=== PATIENT | female | born 1955 | race Caucasian/White ===

== ENCOUNTER 2018-11-03 17:07 | Emergency (ER) | payer BC ==
[~2018-11-03] VITALS: Ht 182.9 cm; Wt 97.1 kg
[2018-11-03] MEDS ORDERED: ALLOPURINOL100 MG (17:22)
[2018-11-03] MEDS ORDERED: TYLENOL325 MG (17:22)
[2018-11-03] MEDS ORDERED: ATENOLOL25 MG (17:22)
[2018-11-03] MEDS ORDERED: CRESTOR5 MG (17:22)
[2018-11-03] MEDS ORDERED: CLONAZEPAM0.5 MG (17:22)
[2018-11-03] MEDS ORDERED: SERTRALINE20 MG/1 ML (17:22)
[2018-11-03] MEDS ORDERED: [UNRECOGNIZED DRUG - OTHER] (17:23)
[2018-11-03] MEDS ORDERED: CLOPIDOGREL BIS75 MG (17:23)
[2018-11-03] MEDS ORDERED: MIRTAZAPINE7.5 MG (17:23)
[2018-11-03] MEDS ORDERED: COZAAR25 MG (17:23)
== END 2018-11-03 23:44 | disposition home or self-care (01) ==
LOC: ER 17:07
DX: T25.221A Burn of second degree of right foot, initial encounter (principal); X19.XXXA Contact with other heat and hot substances, initial encounter; Y93.01 Activity, walking, marching and hiking; Y92.832 Beach as the place of occurrence of the external cause; Y99.8 Other external cause status